=== PATIENT | female | born 1965 | race Caucasian/White ===

== ENCOUNTER → 2019-04-19 16:02 | Outpatient (CLI) | payer BC, SELFPAY ==
[2019-04-19 16:47] LABS: Free T4 (Free Thyroxine) 1.18 ng/dl (0.76-1.46)
== END ==
PROVIDERS: Visit Provider Otolaryngology
DX: E03.9 Hypothyroidism, unspecified (principal)
CPT/HCPCS: 36415; 84439; 84443

== ENCOUNTER → 2020-04-18 15:16 | Outpatient (CLI) | payer BC, SELFPAY ==
[2020-04-18 16:27] LABS: Free T4 (Free Thyroxine) 1.35 ng/dl (0.78-2.19)
== END ==
PROVIDERS: Visit Provider Otolaryngology
DX: E03.9 Hypothyroidism, unspecified (principal); J30.9 Allergic rhinitis, unspecified
CPT/HCPCS: 36415; 84439; 84443

== ENCOUNTER → 2021-04-16 12:52 | Outpatient (CLI) | payer BC, SELFPAY ==
[2021-04-16 15:08] LABS: Free T4 (Free Thyroxine) 1.69 ng/dl (0.78-2.19)
== END ==
PROVIDERS: Visit Provider Otolaryngology
DX: E03.9 Hypothyroidism, unspecified (principal)
CPT/HCPCS: 36415; 84439; 84443

== ENCOUNTER → 2021-10-16 15:29 | Outpatient (CLI) | payer BC, SELFPAY ==
--- NOTE | 2021-10-16 15:48 | ECG_ITS ---
APPROVED REPORT Exam: Resting ECG HR:68 bpm ECG Measurements Heart Rate 68 AXES [place] 158 P 31 QRSd 78 QRS 14 QT 404 T -6 QTc 429 Conclusion Normal sinus rhythm Poor R Wave Progression T wave abnormality, consider inferior/lateral ischemia Abnormal ECG Electronically signed by : Flavio Upton MD 10/16/2021 16:15:12
[2021-10-16 16:31] LABS: Basophils % 0.5 % (0.1-2.0); Eosinophils % 0.8 % (0.1-12.0); Hematocrit 42.3 % (37.0-47.0); Hemoglobin 13.7 g/dL (12.2-16.2); Lymphocytes # 1.8 K/mm3 (0.7-4.5); Lymphocytes % 36.8 % (10-50); Mean Corpuscular HGB Conc 32.3 g/dL (31.8-35.4); Mean Corpuscular Hemoglobin 29.5 pg (27.0-31.2); Mean Corpuscular Volume 91.3 fl (81-99); Mean Platelet Volume 6.8 fl (7.4-10.4); Monocytes # 0.2 K/mm3 (0.1-1.0); Monocytes % 4.8 % (1.7-9.3); Neutrophils # 2.8 K/mm3 (1.8-7.8); Platelet Count 237 K/mm3 (142-424); Red Blood Count 4.63 M/mm3 (4.20-5.40); White Blood Count 4.9 K/mm3 (4.8-10.8)
[2021-10-16 16:35] LABS: Alanine Aminotransferase 29 U/L (12-78); Albumin Level 4.4 g/dl (3.5-5.0); Albumin/Globulin Ratio 1.6 (1.1-1.8); Alkaline Phosphatase 104 U/L (38-126); Anion Gap 9.2 mEq/L (5-15); Aspartate Amino Transferase 31 U/L (14-36); Bilirubin,Total 0.3 mg/dl (0.2-1.3); Blood Urea Nitrogen 19 mg/dl (7-17); Calcium 9.6 mg/dl (8.4-10.2); Carbon Dioxide 28 mmol/L (22.0-30.0); Chloride 106 mmol/L (98-107); Chol/HDL Ratio 2.5 (1-3.5); Cholesterol 214 mg/dl (140-200); Estimated Glomerular Filt Rate 74 ml/min (>60); GFR (African American) 90 ML/MIN (>60); Globulin 2.7 g/dL (1.3-3.2); Glucose 93 mg/dl (74-100); HDL Cholesterol 86 mg/dl (40-60); Potassium 4.2 mmoL/L (3.5-5.1); Sodium 139 mmol/L (136-145); Total Protein,Serum 7.1 g/dl (6.3-8.2); Triglycerides 53 mg/dl (30-150); VLDL Cholesterol 11 mg/dL (0-40)
[2021-10-16 17:39] LABS: Troponin I < 0.01 ng/ml (0.00-0.034)
== END ==
PROVIDERS: Visit Provider Internal Medicine
DX: M79.602 Pain in left arm (principal); R03.0 Elevated blood-pressure reading, without diagnosis of hypertension; E78.5 Hyperlipidemia, unspecified; R94.31 Abnormal electrocardiogram [ECG] [EKG]
CPT/HCPCS: 36415; 80053; 80061; 84484; 85025; 93005

== ENCOUNTER → 2021-10-23 07:06 | Outpatient (CLI) | payer BC, SELFPAY ==
--- NOTE | 2021-10-23 | CA_ITS ---
APPROVED REPORT Exam: Exercise Treadmill Technologist: Radha Wong, Ht: 5 ft 6 in Wt: 192 lbs BSA: 1.97 m2 HR: 64 bpm BP: 146/78 mmHg Medical History Medications: Synthroid,,,,, Flonase,,,,, ZYRTEC,,,,, Zithromax,,,,, Stress Test Details Test: Charles HR Resting HR: 74 bpm Max Heart Rate (APMHR): 165 bpm Max HR Achieved: 151 bpm Target HR (85% APMHR): 140 bpm % of APMHR: 92 Recovery HR: 96 bpm BP Resting BP: 158/79 mmHg Max BP: 200/98 mmHg Recovery BP: 140.0/68.0 mmHg ECG Clinical Exercise duration: 07:12 min Highest Stage Achieved: Exercise capacity: 10.1 METs Stress ECG Conclusion Symptoms: SOA with Peak exercise. No chest pain Arrhythmias/Ectopy: None With exercise there is less than 1.[address] segment depression noted from the baseline EKG. The EKG portion of the exercise stress test is negative for ischemia. Test Summary REST . . . . . . . Sitting REST . . . . . . . Standing REST 08:15 0.0 0.0 74 . 158/ 79 . . Stage 1 01:00 10.0 1.7 100 . . . . Stage 1 02:00 10.0 1.7 109 . . . . Stage 1 03:00 10.0 1.7 115 . 184/ 90 . . Stage 2 01:00 12.0 2.5 127 . . . . Stage 2 02:00 12.0 2.5 135 . . . . Stage 2 . . . . . . . Cardiolite injected Stage 2 03:00 12.0 2.5 142 . 200/ 98 . . Stage 3 01:00 14.0 3.4 149 . . . . Stage 3 01:12 14.0 3.4 150 . . . Stop exercise at 07:12 RECOVERY 01:00 0.0 0.0 126 . . . . RECOVERY 02:00 0.0 0.0 110 . 175/ 73 . . RECOVERY 03:00 0.0 0.0 87 . 175/ 73 . . RECOVERY 03:42 0.0 0.0 96 . 140/ 68 . . Electronically signed by : Power Thomas MD 10/23/2021 11:07:05
--- NOTE | 2021-10-23 07:14 | NM_ITS ---
APPROVED REPORT Exam: Nuclear Stress Test Indication: chest pain..fatigue Patient Location: Outpatient Stress Tech: Radha Wong VA Tech:Lora Sneed FABIANA RT(R)(N) Ht: 5 ft 4 in Wt: 188 lbs Bra Size: 36c HR: 74 bpm BP: 158/79 mmHg BSA: 1.91 m2 BMI: 32.2 History: chest pain..fatigue Procedure: Patient exercised on Charles protocol 7:12 minutes and sec, resting heart rate 74 bpm, resting blood pressure 158/79 mmHg, with exercise maximum heart rate achived was 151 bpm which is 92 % of the maximum predicted heart rate and blood pressure was 200/98 mmHg. Patient has good exercise capacity, achieved 10.0 METs of workload on treadmill, the blood pressure response to exercise was Adequate. Electrocardiogram Resting electrocardiogram shows sinus rhythm, with exercise there is less than 1.[address] segment depression noted from the baseline EKG. The EKG portion of the exercise Myoview is negative for ischemia. Cardiac Stress and Resting SPECT Images: Cardiac Stress and Resting SPECT images were obtained using technetium 99m Myoview 29.2 mCi stress and 10.14 mCi at rest. Gated SPECT for analysis of segmental wall motion and calculation of the ejection fraction also done. Cardiac stress and resting SPECT images show uniform myocardial activity without segmental perfusion abnormality, computer derived ejection fraction is 60% with no regional wall motion abnormality, right ventricle is normal size and contractility. Conclusion: 1. The EKG portion of the exercise Myoview is negative for ischemia, patient has good exercise capacity achieved 10.0 METS of workload on treadmill, the blood pressure response to exercise was adequate, there was no exercise-induced chest discomfort. 2. No scintigraphic evidence of reversible ischemia seen, compared right ejection fraction 60% with no regional wall motion abnormality, right ventricle is normal size and contractility. 3. Normal exercise Myoview study. Electronically signed by : Power Thomas MD 10/23/2021 14:25:47
--- NOTE | 2021-10-23 08:50 | CA_ITS ---
APPROVED REPORT EXAM: Comprehensive 2D, Doppler, and color-flow Echocardiogram Camp Director: Yenifer Tapia RVT Ht: 5 ft 6 in Wt: 192lbs BSA: 1.97 BP: 140/70 mmHg Indications: ABN EKG,HX COVID,SOA 2D Dimensions LVOT 2.03 cm (M/F) 1.5-2.5 LA Volume 25.50 mL LA Volume Index 13.01 mL/m2 (M/F) 16-34 M-Mode Dimensions RVDd 3.06 cm (0.9-2.6) LA Diam 4.21 cm (1.9-4.0) LVDd 3.51 cm (3.5-5.7) Ao Diam 2.46 cm (2.0-3.7) LVDs 2.24 cm (3.5-5.7) IVSd 0.89 cm (0.6-1.1) PWd 0.95 cm (0.6-1.1) EF (Teich) 66.80% EPSs 3.19 cm FS 36.20% EDV (Teich) 51.20 mL TAPSE 2.39 (<1.7) ESV (Teich) 17.00 mL LV Diastology E Decel Time 150.00 (160-240 msec) E/A Ratio 1.7 MED E' 9.20 (< 7 cm/sec) E'/MED E' Ratio 9.38 (>14) LAT E' 11.10 (<10 cm/sec) E/LAT E' Ratio 7.77 (>14) Mitral Valve MV E Max Jai. 86.00 (40-130 cm/s) MV A Velocity 52.00 (40-130 cm/s) E/A Ratio 1.67 MV Decel. Time 150.00 (160-240 ms) MV PHT 44.00 ms Pulmonary Valve PV Peak Velocity 82.00 (50-150 cm/s) Tricuspid Valve TR P. Velocity 225.00 cm/s RAP Estimate 10.00 mmHg RVSP 30.20 mmHg Left Ventricle Left atrium is normal size, left ventricle is normal size, there is no concentric left ventricular hypertrophy, visually estimated ejection fraction 55% with no regional wall motion abnormality. Diastolic parameters are within normal range. Right Ventricle Right atrium and right ventricle are normal size and contractility. Aortic Valve Aortic valve is grossly normal, there is no aortic stenosis or aortic insufficiency. Mitral Valve Mitral valve grossly normal, there is trace mitral regurgitation. Tricuspid Valve Tricuspid valve grossly normal, there is trace tricuspid regurgitation, tricuspid regurgitation jet velocity is inadequate for calculation of the right ventricular systolic pressure. TAPSE is within normal range. Pulmonic Valve Pulmonic valve is poorly visualized. Great Vessels Aortic root is normal size. Inferior vena cava is normal size with normal inspiratory collapse. Conclusion 1. Normal left ventricular size, preserved left ventricular systolic function, visually estimated ejection fraction 55% with no regional wall motion abnormality, diastolic parameters are within normal range. 2. Trace mitral and tricuspid regurgitation. 3. No significant pericardial effusion. 4. Inferior vena cava is normal size with normal inspiratory collapse. Electronically signed by : Power Thomas MD 10/23/2021 11:15:20
== END ==
PROVIDERS: PCP Internal Medicine; Visit Provider Internal Medicine
DX: R94.31 Abnormal electrocardiogram [ECG] [EKG] (principal); M79.602 Pain in left arm; R03.0 Elevated blood-pressure reading, without diagnosis of hypertension
CPT/HCPCS: 78452; 93017; 93306; A9502

== ENCOUNTER → 2022-01-08 13:16 | Outpatient (CLI) | payer BC, SELFPAY | PROVIDERS: PCP Internal Medicine; Visit Provider Internal Medicine | DX: E89.0 Postprocedural hypothyroidism (principal); R63.5 Abnormal weight gain | CPT/HCPCS: 84443 ==

== ENCOUNTER → 2022-03-03 14:57 | Outpatient (CLI) | payer BC, SELFPAY ==
--- NOTE | 2022-03-03 15:02 | XR_ITS ---
FINAL REPORT CLINICAL HISTORY: LEFT KNEE SWELLING left knee pain and swelling no injury or trauma shielded FINDINGS: 3 views of the left knee were obtained. There is no acute fracture or dislocation. The joint spaces are intact. There is no soft tissue abnormality. IMPRESSION: No acute process. Reviewed, Interpreted and Dictated by Gonzalo Kruse MD Transcribed by Levon Montejo Authenticated by Gonzalo Kruse MD on 03/03/2022 03:50:32 PM [facility]
== END ==
PROVIDERS: PCP Internal Medicine; Visit Provider Internal Medicine
DX: M25.562 Pain in left knee (principal); M25.462 Effusion, left knee
CPT/HCPCS: 73562

== ENCOUNTER → 2022-04-10 09:47 | Outpatient (CLI) | payer BC, SELFPAY ==
--- NOTE | 2022-04-10 09:55 | MR_ITS ---
FINAL REPORT CLINICAL HISTORY: LT KNEE STRAIN left knee pain. nki. pt is distal to patella. FINDINGS: Multiplanar MR imaging of the left knee was performed without contrast. There is a tear of the posterior horn of the medial meniscus. The lateral meniscus is intact. The anterior and posterior cruciate ligaments are intact. Sprain or partial tear is noted in the proximal medial collateral ligament. The lateral ligamentous complex is intact. There is distal patellar tendinitis. The distal quadriceps tendon is intact. There is no evidence of fracture. Mild degenerative changes are noted. Moderate chondromalacia is noted of the medial compartment with several small osteochondral lesions. A moderate joint effusion is seen. The musculature is intact. No soft tissue mass or cyst is identified. IMPRESSION: Tear of the posterior horn of the medial meniscus. Sprain or partial tear of the proximal medial collateral ligament. Moderate medial compartment chondromalacia. Distal patellar tendinitis. Authenticated and [facility]
== END ==
PROVIDERS: PCP Internal Medicine; Visit Provider Internal Medicine
DX: S86.912D Strain of unspecified muscle(s) and tendon(s) at lower leg level, left leg, subsequent encounter (principal)
CPT/HCPCS: 73721

== ENCOUNTER → 2022-05-31 15:19 | Outpatient (CLI) | payer BC, SELFPAY ==
--- NOTE | 2022-05-31 15:31 | US_ITS ---
FINAL REPORT TECHNIQUE: Sonographic images of the thyroid gland were obtained in the longitudinal and transverse planes. CLINICAL HISTORY: hx thyroid sx: rt lobe removed FINDINGS: The right thyroid lobe and right isthmus have been removed. The remainder of the isthmus measures 4 mm. The left thyroid lobe measures 1.9 x 4.2 x 1.3 cm. There are several hypoechoic left thyroid nodules, wider than tall. The largest measures 9 mm. No abnormal calcifications are identified. IMPRESSION: Multiple TI-RADS category 4 left thyroid nodules. Based on size of less than 1 cm, there no current recommendations for follow-up Reviewed, Interpreted and Dictated by Ina Gilbert MD Transcribed by Hayley South Authenticated and [facility]
== END ==
PROVIDERS: PCP Internal Medicine; Visit Provider Otolaryngology
DX: E03.9 Hypothyroidism, unspecified (principal)
CPT/HCPCS: 76536

== ENCOUNTER → 2023-03-09 11:50 | Outpatient (CLI) | payer BC, SELFPAY ==
--- NOTE | 2023-03-09 11:51 | ECG_ITS ---
APPROVED REPORT Exam: Resting ECG HR:83 bpm ECG Measurements Heart Rate [address] 168 P 21 QRSd 86 QRS 61 QT 376 T -5 QTc 416 Conclusion SINUS RHYTHM WITH FREQUENT SUPRAVENTRICULAR PREMATURE COMPLEXES LOW QRS VOLTAGE IN PRECORDIAL LEADS [QRS DEFLECTION < 1.0 mV IN CHEST LEADS] POSSIBLE RIGHT VENTRICULAR CONDUCTION DELAY [RSR (QR) IN V1/V2] ABNORMAL QRS-T ANGLE [QRS-T AXIS DIFFERENCE > 60] ABNORMAL ECG UNCONFIRMED REPORT Electronically signed by : Jovani Willson MD 03/09/2023 21:17:00
--- NOTE | 2023-03-09 12:16 | XR_ITS ---
FINAL REPORT TECHNIQUE: Chest PA & Lateral CLINICAL HISTORY: pre op-- congestion COMPARISON: 07/01/2016 FINDINGS: 2 views of the chest were performed. The heart size is normal. The mediastinum is within normal limits. There is no acute cardiopulmonary process. There are no pleural effusions. There is no pneumothorax. The bony thorax appears intact. IMPRESSION: No acute cardiopulmonary process. Reviewed, Interpreted and Dictated by Gonzalo Kruse MD Transcribed by Stacy Malagon Authenticated and . [facility]
[2023-03-09 12:24] LABS: Basophils % 0.9 % (0.1-2.0); Eosinophils # 0.1 K/mm3 (0.0-0.4); Eosinophils % 1.3 % (0.1-12.0); Hematocrit 40.9 % (37.0-47.0); Hemoglobin 13.4 g/dL (12.2-16.2); Lymphocytes # 1.8 K/mm3 (0.7-4.5); Lymphocytes % 47.7 % (10-50); Mean Corpuscular HGB Conc 32.7 g/dL (31.8-35.4); Mean Corpuscular Hemoglobin 28.8 pg (27.0-31.2); Mean Corpuscular Volume 87.9 fl (81-99); Mean Platelet Volume 7.7 fl (7.4-10.4); Monocytes # 0.2 K/mm3 (0.1-1.0); Monocytes % 6.2 % (1.7-9.3); Neutrophils # 1.7 K/mm3 (1.8-7.8); Platelet Count 227 K/mm3 (142-424); Red Blood Count 4.66 M/mm3 (4.20-5.40); Red Cell Distribution Width 13.7 % (11.5-17.5); White Blood Count 3.8 K/mm3 (4.8-10.8)
[2023-03-09 12:54] LABS: Chloride 97 mmol/L (98-107); Sodium 138 mmol/L (136-145)
[2023-03-09 12:55] LABS: Potassium 4.4 mmoL/L (3.5-5.1)
[2023-03-09 12:57] LABS: Alanine Aminotransferase 24 U/L (12-78); Albumin Level 4.5 g/dl (3.5-5.0); Albumin/Globulin Ratio 1.8 (1.1-1.8); Alkaline Phosphatase 97 U/L (38-126); Anion Gap 14.4 mEq/L (5-15); Aspartate Amino Transferase 30 U/L (14-36); Bilirubin,Total 0.4 mg/dl (0.2-1.3); Blood Urea Nitrogen 21 mg/dl (7-17); Carbon Dioxide 31 mmol/L (22.0-30.0); Estimated Glomerular Filt Rate 74 ml/min (>60); GFR (African American) 90 ML/MIN (>60); Globulin 2.5 g/dL (1.3-3.2)
[2023-03-09 12:58] LABS: Calcium 9.6 mg/dl (8.4-10.2); Glucose 98 mg/dl (74-100)
== END ==
PROVIDERS: PCP Internal Medicine; Visit Provider Orthopaedic Surgery
DX: Z01.818 Encounter for other preprocedural examination (principal); S83.242A Other tear of medial meniscus, current injury, left knee, initial encounter
CPT/HCPCS: 36415; 71046; 80053; 85025; 93005

== ENCOUNTER 2023-03-15 07:11 | Day surgery (SDC) | payer BC, SELFPAY ==
[2023-03-15] VITALS (11 sets, daily range): BP systolic 113–139; BP diastolic 68–85; PULSE 60–80; RESP 16–17; TEMP 36.3–43; O2SAT 93–100; BMI 31.6
--- NOTE | 2023-03-15 08:44 | EXP.ANES.CKL ---
[facility] Disclaimer: The information contained in this section may have been updated after the patient was seen, as this information can be updated by other users. Medical History Abnormal electrocardiogram [ECG] [EKG] Dyspnea Thyroid activity decreased Surgical History History of tubal ligation Hx of partial thyroidectomy Family History Other No significant family history Social History (Updated 03/15/23 @ 07:50 by Samantha Carbone RN) Smoking Status: Never smoker alcohol intake: never substance use type: denies use current occupational status: employed Travel in the last 8 weeks: None [facility] Anesthesia Checklist Patient Identification Patient Identification: Arm Band and Verbal (Name & ) Structural Data Admitted From: Home Planned Operative Procedure/s: Left Knee Scope Consent for Planned Operative Procedure(s) Verified: Yes Verified Documents: Surgical Consent NPO Status Verified Time NPO: 00:00 Chart Verification Results Verified: CBC, BMP, ECG and Chest Xray Additional verifications Anesthesia Reactions: No Airway Assessment C-Spine Mobility Assessed: Yes TMJ Mobility Assessed: Yes Dentition: Good Dentition Neurological Assessment Level of Consciousness: Awake, Alert and Appropriate Anesthesia Plan Anesthesia Risk discussed: Yes ASA Class: II Anesthesia Type: General
--- NOTE | 2023-03-15 09:46 | EXP.OP.NOTE ---
Date of procedure: 03/15/23 Pre-op Diagnosis:: Left knee medial meniscus tear Post-op Diagnosis:: Left knee medial meniscus tear Procedure performed:: Left knee arthroscopy with partial medial meniscectomy Surgeon:: Brant Corey MD Sales Representative Livestock(s):: None ABSENCE MANAGEMENT CONSULTANT:: Delvis Tinsley Anesthesia: local and LMA Estimated blood loss (mL): 5 Clinical Note:: Loraine is a pleasant 57-year-old female with left knee pain secondary to a medial meniscus tear. No significant relief with a left knee cortisone injection in September. A left knee MRI April 2022 revealed mild chondromalacia and a complex tear posterior horn medial meniscus. We discussed all the risks, benefits and alternatives to a left knee arthroscopy for partial medial meniscectomy. She agreed to proceed and a surgical consent form was signed. Operative findings:: Complex tear body of the medial meniscus with an unstable flap flipped into the gutter. Horizontal cleavage tear posterior horn medial meniscus. Small area of grade IV chondromalacia medial tibial plateau. Otherwise mild chondromalacia. Cruciate ligaments were intact. Operative note:: The patient was seen in the preoperative holding area. The left knee was marked to confirm the correct operative site. She received clindamycin 900 mg IV prophylactic antibiotics within 1 hour of incision time. She was seen by anesthesia. She was brought back to the OR. General anesthesia induced without difficulty. Left lower extremity was prepped and draped in the usual sterile fashion. Timeout was performed to confirm left knee arthroscopy on patient Loraine Esteban. I made an anterior lateral viewing portal with an 11 scalpel. Arthroscope was introduced into the knee joint. I then made an anterior medial portal localizing this with a spinal needle and this incision was made with an 11 blade as well. Dilated with a trocar. Diagnostic arthroscopy commenced. Evaluation of the medial compartment revealed an unstable flap tear body of the medial meniscus. Flap was flipped into the gutter. There was a small area of grade IV chondromalacia in the medial tibial plateau in this area. This unstable flap was debrided with the straight biter and a 4.0 mm shaver back to smooth stable border. The posterior horn of the medial meniscus had a horizontal cleavage tear that was also debrided with a straight biter and the shaver back to smooth stable border removing approximately the inner third to half of the posterior horn of the medial meniscus. After debriding the flap tear of the body the medial meniscus this involved debriding approximately 1/2-2/3 of the body medial meniscus. Some diffuse grade II-III chondromalacia on the medial femoral condyle debrided as well. Only area of full-thickness cartilage loss was on the small area of the medial tibial plateau. Cruciate ligaments were seen to be intact. Lateral compartment revealed minimal chondromalacia lateral meniscus was intact. Patellofemoral compartment had mild chondromalacia with no full-thickness cartilage loss. At this time arthroscopy instruments were removed from the joint. Arthroscopy fluid suctioned and drained from the joint. Portals were closed with 4-0 Monocryl subcuticular sutures. I injected 10 cc of half percent Naropin from the superior lateral approach for local anesthetic. A sterile dressing was applied with Steri-Strips, 4 x 4's, ABD, soft roll and an Daniele bandage. Anesthesia reversed without difficulty and transferred to recovery in stable condition. All sponge and needle counts correct x2. Tourniquet time (min): 0 Condition: stable Disposition: PACU Specimens:: None Complications:: None
--- NOTE | 2023-03-15 10:42 | PC.NURSE ---
Pt already has crutches at home, will not need these upon DC.
--- NOTE | 2023-03-15 13:00 | EXP.ANES.I ---
[facility] Anesthesia Record Part I Anesthesia Record I Intake, IV Amount: 1,000 Estimated blood loss (mL): 0 Urine output (mL): 0 Blood Pressure: 113/76 SaO2: 93 Pulse Rate: 63 Respiratory Rate: 16 Temperature: 97.4 F Patient is:: Drowsy and Stable Stable to PACU at:: 09:45
--- NOTE | 2023-03-15 13:01 | EXP.ANES.II ---
[facility] Anesthesia Record Part II Anesthesia Record Part II Discharge Time: 10:15 Destination: Surgical Day Care (OP Surgery) PACU nurse assessment reviewed?: Yes Patient Condition:: Good Anesthesia Complications:: None Swallowing reflex intact?: Yes Cyanosis?: No Blood Pressure: 139/77 Pulse Rate: 76 Temperature: 98.2 F Mental Status: Alert & Oriented Pain level:: 0 Nausea and/or vomitting:: None Intake, IV Amount: 0
== END 2023-03-15 10:50 | disposition home or self-care (01) ==
PROVIDERS: PCP Internal Medicine; Visit Provider Orthopaedic Surgery
PROC: (CPT 29870; principal; 2023-03-15 08:45)
DX: S83.242A Other tear of medial meniscus, current injury, left knee, initial encounter; M17.12 Unilateral primary osteoarthritis, left knee; Z79.899 Other long term (current) drug therapy; M25.562 Pain in left knee; M94.262 Chondromalacia, left knee
CPT/HCPCS: 29881; 96374; J2405

== ENCOUNTER → 2023-06-08 11:03 | Outpatient (CLI) | payer BC, SELFPAY ==
[2023-06-08 12:33] LABS: Thyroid Stimulating Hormone 0.94 uIU/mL (0.465-4.68)
== END ==
PROVIDERS: PCP Internal Medicine; Visit Provider Internal Medicine
DX: E03.9 Hypothyroidism, unspecified (principal)
CPT/HCPCS: 36415; 84443

== ENCOUNTER 2024-03-19 09:52 | Outpatient (CLI) | payer BC, SELFPAY ==
[2024-03-19 10:24] LABS: Basophils % 0.5 % (0.1-2.0); Eosinophils # 0.1 K/mm3 (0.0-0.4); Eosinophils % 1.5 % (0.1-12.0); Hematocrit 40.5 % (37.0-47.0); Hemoglobin 12.8 g/dL (12.2-16.2); Lymphocytes # 1.5 K/mm3 (0.7-4.5); Lymphocytes % 21.4 % (10-50); Mean Corpuscular HGB Conc 31.6 g/dL (31.8-35.4); Mean Corpuscular Volume 95.1 fl (81-99); Mean Platelet Volume 7.6 fl (7.4-10.4); Monocytes # 0.3 K/mm3 (0.1-1.0); Monocytes % 4.1 % (1.7-9.3); Neutrophils % 72.4 % (37.0-80.0); Platelet Count 241 K/mm3 (142-424); Red Blood Count 4.26 M/mm3 (4.20-5.40); Red Cell Distribution Width 14.1 % (11.5-17.5); White Blood Count 6.9 K/mm3 (4.8-10.8)
[2024-03-19 10:47] LABS: Alanine Aminotransferase 22 U/L (12-78); Albumin Level 4.3 g/dl (3.5-5.0); Alkaline Phosphatase 96 U/L (38-126); Anion Gap 14.2 mEq/L (5-15); Aspartate Amino Transferase 32 U/L (14-36); Bilirubin,Direct 0.1 mg/dl (0.0-0.4); Bilirubin,Indirect 0.3 mg/dL (0.0-0.9); Bilirubin,Total 0.4 mg/dl (0.2-1.3); Bilirubin,Unconjugated 0.4 mg/dL (0.0-1.1); Blood Urea Nitrogen 21 mg/dl (7-17); Calcium 9.7 mg/dl (8.4-10.2); Carbon Dioxide 26 mmol/L (22.0-30.0); Chloride 105 mmol/L (98-107); Chol/HDL Ratio 2.2 (1-3.5); Cholesterol 226 mg/dl (140-200); Estimated Glomerular Filt Rate 74 ml/min (>60); GFR (African American) 89 ML/MIN (>60); Glucose 96 mg/dl (74-100); HDL Cholesterol 101 mg/dl (40-60); Potassium 4.2 mmoL/L (3.5-5.1); Sodium 141 mmol/L (136-145); Total Protein,Serum 6.9 g/dl (6.3-8.2); Triglycerides 70 mg/dl (30-150); VLDL Cholesterol 14 mg/dL (0-40)
[2024-03-19 10:57] LABS: Direct LDL Cholesterol 104.07 mg/dL (100-129)
[2024-03-19 11:03] LABS: Free Thyroxine Index 3.6 ug/dL (5.93-13.13); T4 (Thyroxine) 12.1 ug/dl (5.53-11.0); Triiodothryronine (T3) Uptake 30 % (23.5-40.5)
[2024-03-19 11:16] LABS: Thyroid Stimulating Hormone 0.62 uIU/mL (0.465-4.68)
[2024-03-19 11:17] LABS: Thyroid Stimulating Hormone 0.62 uIU/mL (0.465-4.68)
[2024-03-19 11:38] LABS: Free T4 (Free Thyroxine) 1.27 ng/dl (0.78-2.19)
[2024-03-20 08:36] LABS: Thyroid Peroxidase Antibodies <9 IU/mL (0-34)
== END 2024-03-19 23:59 | disposition home or self-care (01) ==
LOC: LAB 09:52
PROVIDERS: PCP Internal Medicine; Visit Provider Nurse Practitioner Family
DX: R94.31 Abnormal electrocardiogram [ECG] [EKG] (principal)
CPT/HCPCS: 36415; 80048; 80061; 80076; 84436; 84439; 84443; 84479; 85025; 86376

== ENCOUNTER 2025-03-19 10:43 | Outpatient (CLI) | payer BC, SELFPAY ==
[2025-03-19 17:28] LABS: Basophils % 0.3 % (0.1-2.0); Eosinophils % 0.6 % (0.1-12.0); Hematocrit 38.4 % (37.0-47.0); Hemoglobin 12.3 g/dL (12.2-16.2); Immature Granulocytes # 0.01 10^3uL; Immature Granulocytes % 0.2 %; Lymphocytes # 1.2 K/mm3 (0.7-4.5); Lymphocytes % 19.6 % (10-50); Mean Corpuscular Hemoglobin 29.9 pg (27.0-31.2); Mean Corpuscular Volume 93.4 fl (81-99); Mean Platelet Volume 9.4 fl (7.4-10.4); Monocytes # 0.5 K/mm3 (0.1-1.0); Monocytes % 7.5 % (1.7-9.3); Neutrophils # 4.4 K/mm3 (1.8-7.8); Neutrophils % 71.8 % (37.0-80.0); Nucleated Red Blood Cells # 0 10^3/uL; Nucleated Red Blood Cells % 0 %; Platelet Count 243 K/mm3 (142-424); Red Blood Count 4.11 M/mm3 (4.20-5.40); Red Cell Distribution Width 13.5 % (11.5-17.5); Red Cell Distribution Width-SD 46.2 fL; White Blood Count 6.2 K/mm3 (4.8-10.8)
[2025-03-19 18:05] LABS: Alanine Aminotransferase 25 U/L (12-78); Albumin Level 4.4 g/dl (3.5-5.0); Albumin/Globulin Ratio 1.7 (1.1-1.8); Alkaline Phosphatase 100 U/L (38-126); Anion Gap 8.2 mEq/L (5-15); Aspartate Amino Transferase 33 U/L (14-36); Bilirubin,Total 0.4 mg/dl (0.2-1.3); Blood Urea Nitrogen 20 mg/dl (7-17); Calcium 9.3 mg/dl (8.4-10.2); Carbon Dioxide 27 mmol/L (22.0-30.0); Chloride 105 mmol/L (98-107); Chol/HDL Ratio 2.6 (1-3.5); Cholesterol 194 mg/dl (140-200); Estimated Glomerular Filt Rate 74 ml/min (>60); GFR (African American) 89 ML/MIN (>60); Globulin 2.6 g/dL (1.3-3.2); Glucose 87 mg/dl (74-100); HDL Cholesterol 74 mg/dl (40-60); Potassium 4.2 mmoL/L (3.5-5.1); Sodium 136 mmol/L (136-145); Triglycerides 74 mg/dl (30-150); VLDL Cholesterol 15 mg/dL (0-40)
[2025-03-19 18:16] LABS: Direct LDL Cholesterol 92.15 mg/dL (100-129)
[2025-03-19 18:36] LABS: Thyroid Stimulating Hormone 0.31 uIU/mL (0.465-4.68)
== END 2025-03-19 23:59 | disposition home or self-care (01) ==
LOC: LAB.DROPOF 03-21 10:44
PROVIDERS: PCP Internal Medicine; Visit Provider Internal Medicine
DX: E03.9 Hypothyroidism, unspecified (principal); E78.5 Hyperlipidemia, unspecified; M17.12 Unilateral primary osteoarthritis, left knee; K21.9 Gastro-esophageal reflux disease without esophagitis
CPT/HCPCS: 80053; 80061; 84443; 85025

== ENCOUNTER 2025-06-12 15:20 | Outpatient (CLI) | payer BC, SELFPAY ==
[2025-06-12 17:51] LABS: Hematocrit 40.1 % (37.0-47.0); Hemoglobin 12.7 g/dL (12.2-16.2); Immature Granulocytes % 0.2 %; Mean Corpuscular HGB Conc 31.7 g/dL (31.8-35.4); Mean Corpuscular Hemoglobin 29.0 pg (27.0-31.2); Mean Corpuscular Volume 91.6 fl (81-99); Nucleated Red Blood Cells % 0 %; Platelet Count 242 K/mm3 (142-424); Red Blood Count 4.38 M/mm3 (4.20-5.40); Red Cell Distribution Width-SD 44.5 fL; White Blood Count 5.2 K/mm3 (4.8-10.8)
[2025-06-12 20:18] LABS: Free T4 (Free Thyroxine) 1.54 ng/dl (0.78-2.19)
[2025-06-12 20:43] LABS: Thyroid Stimulating Hormone 1.35 uIU/mL (0.465-4.68)
[2025-06-14 13:11] LABS: Triiodothyronine (T3) Free 2.7 pg/mL (2.0-4.4)
== END 2025-06-12 23:59 | disposition home or self-care (01) ==
LOC: LAB.DROPOF 06-13 11:08
PROVIDERS: PCP Internal Medicine; Visit Provider Internal Medicine
DX: E03.9 Hypothyroidism, unspecified (principal); R61 Generalized hyperhidrosis; R23.2 Flushing
CPT/HCPCS: 84439; 84443; 84481; 85025; 85651